=== PATIENT | female | born 1940 | race Caucasian/White ===

== ENCOUNTER → 2017-05-30 | Outpatient (CLI) | payer MEDICARE, OTHER | LOC: M.RAD 14:43 | DX: J06.9 Acute upper respiratory infection, unspecified (principal); B97.89 Other viral agents as the cause of diseases classified elsewhere; J02.9 Acute pharyngitis, unspecified ==

== ENCOUNTER → 2017-07-07 | Outpatient (CLI) | payer MEDICARE, OTHER | LOC: M.MRI 06-30 11:30 | DX: Z12.31 Encounter for screening mammogram for malignant neoplasm of breast (principal); K76.89 Other specified diseases of liver; D35.01 Benign neoplasm of right adrenal gland; R16.0 Hepatomegaly, not elsewhere classified ==

== ENCOUNTER → 2018-07-30 | Outpatient (CLI) | payer MEDICARE, OTHER ==
--- NOTE | 2018-07-30 13:28 | 2DMMODE ---
[place] [address] 2 D/M-MODE ECHOCARDIOGRAM Name: EDDA GRIFFITH Room: [facility]#: [id number] Admission: 07/30/18 Attend Phys: Sami Kendrick, Discharge: Date of : 44 Date of Service: 07/30/18 1328 Report #: [id number] THIS REPORT FOR: //name// APPROVED REPORT Study performed: 07/30/2018 10:23:46 EXAM: Comprehensive 2D, Doppler, and color-flow Echocardiogram Patient Location: Out-Patient BSA: 1.79 HR: 94 bpm BP: 115/82 mmHg Other Information Study Quality: Adequate Indications Chest Pain 2D Dimensions IVSd: 11.37 (7-11mm) LVOT Diam: 20.20 (18-24mm) LVDd: 41.05 mm PWd: 10.25 (7-11mm) Ascending Ao: 28.47 (22-36mm) LVDs: 24.06 (25-40mm) Aortic Root: 21.59 mm Volumes Left Atrial Volume (Systole) LA ESV Index: 11.30 mL/m2 Aortic Valve AoV Peak Merlin.: 1.13 m/s AO Peak Gr.: 5.11 mmHg LVOT Max P.18 mmHg AO Mean Gr.: 3.11 mmHg LVOT Mean P.07 mmHg LVOT Max V: 1.14 m/s AO V2 VTI: 21.02 cm LVOT Mean V: 0.83 m/s FERNANDO (VTI): 3.48 cm2 LVOT V1 VTI: 22.86 cm Mitral Valve E/A Ratio: 0.84 MV Decel. Time: 283.86 ms MV E Max Merlin.: 0.58 m/s MV PHT: 82.32 ms MVA (PHT): 2.67 [place]2 [place] [address] 2 D/M-MODE ECHOCARDIOGRAM Name: EDDA GRIFFITH Room: [facility]#: [id number] Admission: 07/30/18 Attend Phys: Sami Kendrick, Discharge: Date of : 44 Date of Service: 07/30/18 1328 Report #: [id number] TDI E/Lateral E': 9.67 E/Medial E': 8.29 Medial E' Merlin.: 0.07 m/s Lateral E' Merlin.: 0.06 m/s Pulmonary Valve PV Peak Merlin.: 0.94 m/s PV Peak Gr.: 3.52 mmHg Tricuspid Valve RAP Estimate: 5.00 mmHg TR Peak Gr.: 21.34 mmHg RVSP: 26.34 mmHg PA Pressure: 26.34 mmHg Left Ventricle The left ventricle is normal size. There is normal LV segmental wall motion. There is normal left ventricular wall thickness. Left ventricular systolic function is normal. The left ventricular ejection fraction is within the normal range. LVEF is 60-65%. The left ventricular diastolic function is normal. Right Ventricle The right ventricle is normal size. The right ventricular systolic function is normal. Atria The left atrium size is normal. The right atrium size is normal. Aortic Valve The aortic valve is normal in structure. No aortic regurgitation is present. There is no aortic valvular stenosis. Mitral Valve Mild mitral annular calcification. Mild mitral regurgitation. No evidence of mitral valve stenosis. Tricuspid Valve The tricuspid valve is normal in structure. Mild tricuspid regurgitation. estimated pa pressure 30 mm Hg Pulmonic Valve The pulmonary valve is normal in structure. Mild pulmonic regurgitation[place] [address] 2 D/M-MODE ECHOCARDIOGRAM Name: EDDA GRIFFITH Room: [facility]#: [id number] Admission: 07/30/18 Attend Phys: Sami Kendrick, Discharge: Date of : 44 Date of Service: 07/30/18 1328 Report #: [id number] The aortic root is normal in size. IVC is not well visualized. Pericardium There is no pericardial effusion. <Conclusion> LVEF is 60-65%. Mild mitral regurgitation. <ELECTRONICALLY SIGNED> By: Sami Suarez MD, [facility] 07/30/18 1328 1328 1328 Sami Suarez MD, [facility] /INF
== END ==
LOC: M.CRD 10:00
DX: I08.8 Other rheumatic multiple valve diseases (principal); K21.9 Gastro-esophageal reflux disease without esophagitis; M79.7 Fibromyalgia; F32.1 Major depressive disorder, single episode, moderate; Z88.1 Allergy status to other antibiotic agents

== ENCOUNTER → 2019-02-15 | Outpatient (CLI) | payer MEDICARE, OTHER | LOC: M.RAD 02-08 11:00 | DX: Z12.31 Encounter for screening mammogram for malignant neoplasm of breast (principal) ==

== ENCOUNTER → 2019-09-20 | Outpatient (CLI) | payer MEDICARE, OTHER | LOC: M.MRI 10:55 | PROVIDERS: ATTEND Internal Medicine | DX: I67.82 Cerebral ischemia (principal); K21.9 Gastro-esophageal reflux disease without esophagitis; E78.49 Other hyperlipidemia; M79.7 Fibromyalgia; R53.82 Chronic fatigue, unspecified ==

== ENCOUNTER → 2020-06-17 | Outpatient (CLI) | payer MEDICARE, OTHER | LOC: M.RAD 14:46 | PROVIDERS: ATTEND Registered Nurse Diabetes Educator | DX: Z12.31 Encounter for screening mammogram for malignant neoplasm of breast (principal) ==

== ENCOUNTER → 2020-06-29 | Outpatient (CLI) | payer MEDICARE, OTHER | LOC: M.ULTRA 06-22 13:30 | PROVIDERS: ATTEND Registered Nurse Diabetes Educator | DX: R23.8 Other skin changes (principal); M79.89 Other specified soft tissue disorders ==

== ENCOUNTER → 2021-04-15 | Outpatient (CLI) | payer MEDICARE, OTHER | LOC: M.MRI 04-08 09:31 | PROVIDERS: ATTEND Registered Nurse Diabetes Educator | DX: M47.812 Spondylosis without myelopathy or radiculopathy, cervical region (principal); M48.02 Spinal stenosis, cervical region; N39.46 Mixed incontinence; M19.90 Unspecified osteoarthritis, unspecified site; R53.82 Chronic fatigue, unspecified; R53.1 Weakness; R41.3 Other amnesia; R42 Dizziness and giddiness; H53.2 Diplopia ==

== ENCOUNTER → 2021-04-16 | Outpatient (CLI) | payer MEDICARE, OTHER | LOC: M.MRI 04-08 09:33 | PROVIDERS: ATTEND Registered Nurse Diabetes Educator | DX: M51.27 Other intervertebral disc displacement, lumbosacral region (principal); M51.26 Other intervertebral disc displacement, lumbar region; M47.816 Spondylosis without myelopathy or radiculopathy, lumbar region; M47.817 Spondylosis without myelopathy or radiculopathy, lumbosacral region; R53.82 Chronic fatigue, unspecified; M19.90 Unspecified osteoarthritis, unspecified site; R53.1 Weakness; N39.46 Mixed incontinence; R15.9 Full incontinence of feces; R41.3 Other amnesia; H53.2 Diplopia; R42 Dizziness and giddiness ==